=== PATIENT | female | born 1960 | race Caucasian/White ===

== ENCOUNTER 2017-03-20 21:34 | Emergency (ER) | payer BC ==
[~2017-03-20] VITALS: Ht 154.9 cm; Wt 63.5 kg
[2017-03-20 22:42] LABS: BASOPHIL % 0.4 % (0-2); PLATELET COUNT 214 x10^3mcL (130-400)
[2017-03-20 22:43] LABS: RED CELL DISTRIBUTION WIDTH 15.9 % (11.5-14.5)
[2017-03-20 22:47] LABS: CALCIUM 8.3 mg/dL (8.5-10.1); CARBON DIOXIDE 32.3 mmol/L (21-32); CHLORIDE SERUM 103 mmol/L (98-107); CREATININE SERUM 0.7 mg/dL (0.6-1.0); GFR1 > 60 mL/min; GLUCOSE SERUM 113 mg/dL (74-106); POTASSIUM SERUM 3.3 mmol/L (3.5-5.1); SODIUM SERUM 141 mmol/L (136-145)
[2017-03-20 22:52] LABS: ALBUMIN 3.6 g/dL (3.4-5.0); ALKALINE PHOSPHATASE 74 U/L (46-116); ALT/SGPT 27 U/L (14-59); AST/SGOT 26 U/L (15-37); BILIRUBIN TOTAL 0.1 mg/dL (0.20-1.00); TOTAL PROTEIN, SERUM 7.1 g/dL (6.4-8.2)
[2017-03-21 00:06] LABS: UA SPECIFIC GRAVITY >=1.030 (1.005-1.035); microscopic required? YES; urine erythrocyte 1+ (NEGATIVE)
[2017-03-21 01:57] VITALS: BP 127/82
== END 2017-03-21 01:57 | disposition home or self-care (01) ==
LOC: ED 21:34
PROVIDERS: Emergency Medicine
DX: R56.9 Unspecified convulsions (principal)
CPT/HCPCS: 36415